=== PATIENT | male | born 1940 | race Caucasian/White ===

== ENCOUNTER 2016-05-15 06:17 | Day surgery (SDC) | payer MEDICARE, BC ==
[~2016-05-15 06:17] MED LIST: RINGERS SOLUTION,LACTATED 1,000 ML IV PRN
[2016-05-15] MEDS ORDERED: RINGERS SOLUTION,LACTATED 1,000 ML IV ONE (07:00)
[2016-05-15] MEDS ORDERED: METOCLOPRAMIDE HCL 5 MG/ML VIAL IV ONE (08:00)
--- NOTE | 2016-05-15 08:52 | OR ---
Operative Report - Dictated Report Narrative: Operative Report Date of operation 05/15/2016 Preoperative diagnosis: GERD symptoms despite medication Postoperative diagnosis: Hiatal hernia. Enterogastric bile reflux with gastropathy (pathology and CLOtest pending) Operation: EGD with biopsies Surgeon: Dr Wilson Anesthesia: MARSHA HINES CRNA Indications for procedure: The patient is a 76-year-old male referred by Dr. Riojas and Dr White. He has substernal discomfort, sensitive stomach, and GERD symptoms despite medication. Findings: Small hiatal hernia with evidence of reflux. Enterogastric bile reflux and gastropathy (pathology and CLOtest pending). Subjective gastroparesis Narrative of procedure: The patient was identified preoperatively, and prior to the administration of anesthetic a multidisciplinary timeout was observed With the patient in the recumbent position, a bite-block was placed, intravenous sedation was administered, and the patient's eyes covered with a towel. The flexible fiberoptic gastroscope was advanced into the posterior pharynx which appeared normal. There were crowding of the structures which was relieved by jaw thrust maneuver. The supraglottic larynx appeared normal. The cords appeared normal, moved well, and opposed in the midline. The scope was advanced under direct vision into the proximal esophagus which appeared normal. The esophagus appeared freely distensible with normal mucosa. The esophageal mucosa appeared normal down to the gastroesophageal junction which was sharp and noninflamed. There was a small hiatal hernia. The GE junction appeared normally distensible. The scope was advanced into the stomach. The stomach was filled with bile. This was carefully suctioned. There was mckee gastritic erythema and friability but no balbina ulcers or neoplastic lesions were appreciated including a retroflexed view of the gastric fundus which demonstrated the small hiatal hernia. The scope was redirected toward the pylorus. The pylorus appeared patent. The scope was advanced into the duodenal bulb which appeared normal. The scope was advanced further to the horizontal portion of the duodenum which appeared normal, specifically the villous architecture appeared well preserved and clear bile was present. The scope was slowly withdrawn through the duodenal bulb with confirmation that no active ulcer was present. The scope was withdrawn into the stomach and labor service representative biopsies of gastric mucosa obtained for CLOtest and pathology. The biopsy sites were seen to be hemostatic. The insufflated air was removed, the scope withdrawn from the patient, and the procedure terminated. The patient tolerated the anesthetic and procedure well without complication and was transferred back to the ambulatory surgery area awake and in stable condition. The patient remained stable throughout a period of postoperative observation, was able to tolerate by mouth intake, and was up without assistance. I shared the operative findings with him and his , and he was given copies of the photographs which appear in the medical record. He was given a single dose of Reglan 5 mg IV which he tolerated. He could feel his stomach growling. He was discharged home with instructions not to engage in hazardous activity today, but may return to normal activity tomorrow and advance diet as tolerated. He is to continue medications as listed in the history and physical exam. I made arrangements to contact the patient with biopsy reports and will make further recommendation based upon that result. Reviewed and electronically signed
[2016-05-15 11:09] VITALS: BP 148/82
== END 2016-05-15 06:18 | disposition home or self-care (01) ==
LOC: AMB 06:17
PROVIDERS: ATTEND Surgery
PROC: 0DB68ZX Excision of Stomach, Via Natural or Artificial Opening Endoscopic, Diagnostic (ICD-10-PCS; principal; 2016-05-15 07:30)
DX: K29.70 Gastritis, unspecified, without bleeding (principal); K44.9 Diaphragmatic hernia without obstruction or gangrene; K21.9 Gastro-esophageal reflux disease without esophagitis; I10 Essential (primary) hypertension; E11.9 Type 2 diabetes mellitus without complications; I25.10 Atherosclerotic heart disease of native coronary artery without angina pectoris; J44.9 Chronic obstructive pulmonary disease, unspecified; E78.5 Hyperlipidemia, unspecified; E66.9 Obesity, unspecified; Z68.35 Body mass index [BMI] 35.0-35.9, adult